=== PATIENT | male | born 1955 | race Two or more races ===

== ENCOUNTER 2018-05-18 06:53 | Day surgery (SDC) | payer OTHER ==
[~2018-05-18] VITALS: Ht 154.9 cm; Wt 89.3 kg
[2018-05-18] VITALS (13 sets, daily range): BP systolic 142–180; BP diastolic 77–102; PULSE 52–58; RESP 14–19; Ht 154.9 cm; Wt 89.3 kg
--- NOTE | 2018-05-18 06:24 | PREOPHP ---
DATE OF ADMISSION: 02/02/2018 HISTORY OF PRESENT ILLNESS: This 62-year-old patient is admitted for elective cataract surgery of th e right eye. The patient has previously had progressive deterioration of vision in both eyes and mabel roximately 3 months ago underwent cataract surgery of the left eye with excellent visual recovery. HISTORY OF PRESENT ILLNESS: The patient's systemic history is positive for insulin-dependent diabete s mellitus as well as hypertension and hypercholesterolemia. CURRENT MEDICATIONS: Include: 1. Atorvastatin. 2. Metformin. 3. Lantus insulin. 4. Jardiance. 5. Metoprolol. 6. Benazepril. ALLERGIES: THERE ARE NO KNOWN ALLERGIES. PHYSICAL EXAMINATION: The visual acuity with best correction is 20/80 in the right eye and 20/30 in the left eye. Slit lamp examination reveals nuclear sclerosis and posterior subcapsular cataract arjun nge in the right eye and a posterior chamber intraocular lens in the left eye. Applanation tonometry is 17 mmHg in both eyes. Examination of the retina reveals normal macula pattern with no evidence o f diabetic retinopathy. DIAGNOSIS: Cataract, right eye. PLAN: Cataract extraction with lens implant, right eye. The risks and alternatives to the surgery h ave been discussed with the patient as well as the hope for improvement of visual acuity leading to g reater ability to perform activities of daily living. The patient understands this and agrees to pro ceed with surgery. Dictated By: ALLISON VU/DIAMOND Conf#: [id number] DID#: [id number]
[2018-05-18] MEDS ORDERED: TROPICAMIDE 1% 15 ML OPH OPER SCH (07:00)
[2018-05-18] MEDS ORDERED: LIDOCAINE 2% (SDV) 5 ML INJ ONE (07:00)
[2018-05-18] MEDS ORDERED: CYCLOPENTOLATE/PHENYLEPH 2 ML OPH OPER SCH (07:00)
[2018-05-18] MEDS ORDERED: PROPOFOL 200 MG INJ ONE (07:00)
[2018-05-18] MEDS ORDERED: SOD CHLORIDE 0.9% 1,000 ML IV SCH (07:00)
[2018-05-18] MEDS ORDERED: DICLOFENAC 0.1% 2.5 ML OPH OPER SCH (07:00)
[2018-05-18] MEDS ORDERED: MOXIFLOXACIN 0.5% 3 ML OPH OPER SCH (07:00)
[2018-05-18] MEDS ORDERED: METF100010 PO (07:41)
[2018-05-18] MEDS ORDERED: METO-336 PO (07:42)
[2018-05-18] MEDS ORDERED: LOSA100T15 PO (07:43)
[2018-05-18] MEDS ORDERED: FAMO40TA5 PO (07:43)
[2018-05-18] MEDS ORDERED: EMPA25TA PO (07:43)
[2018-05-18] MEDS ORDERED: LIRA0.6P2 SQ (07:46)
[2018-05-18] MEDS ORDERED: LIDOCAINE 4% (MPF) 5 ML INJ ONE (08:31)
[2018-05-18] MEDS ORDERED: CEFAZOLIN 1 GM INJ ONE (08:31)
[2018-05-18] MEDS ORDERED: CARBACHOL 0.01% 1.5 ML OPH INJ ONE (08:32)
[2018-05-18] MEDS ORDERED: TETRACAINE 0.5% 4 ML OPH ONE (08:32)
[2018-05-18] MEDS ORDERED: DEXAMETHASONE 4 MG/ML 1 ML INJ ONE (08:32)
--- NOTE | 2018-05-18 08:55 | PREAC ---
Date/Time of Note Date/Time of Note DATE: 05/18/18 TIME: 08:52 Anesthesia Eval and Record Evaluation Time Pre-Procedure Interview DATE: 05/18/18 TIME: 08:52 Age 62 Sex male NPO: 8 hrs Preoperative diagnosis Right Eye Cataract Planned procedure Right eye Cataract Extraction and IOL Past Medical History Past Medical History: Includes Cardio: HTN, Dyslipidemia Endo: Diabetes Pulm: Other Neuro: Other Musculoskeletal: Osteoarthritis Renal: Other Hepatic: Other GI: Obesity, Other Heme: Other Psych: Other Infection(s): Other Recreational drugs: Other : Other Surgery & Anesthesia Issues Aspiration risk Meds Anticoagulation: No Beta Marianne within 24 hr: Yes Reason Beta Marianne not given: Other Reported Medications Liraglutide (Victoza 3-Daniel) 0.6 Mg/0.1 Ml Pen.injctr, 1.8 MG SQ DAILY, SYR 05/18/18 Famotidine* (Famotidine*) 40 Mg Tablet, 40 MG PO HS, #30 TAB 05/18/18 Losartan Potassium* (Losartan Potassium*) 100 Mg Tablet, 100 MG PO DAILY, TAB 05/18/18 Empagliflozin (Jardiance) 25 Mg Tablet, 25 MG PO DAILY, TAB 05/18/18 Metoprolol Succinate* (Toprol XL*) 100 Mg Tab.sr.24h, 100 MG PO DAILY, #30 TAB 05/18/18 Metformin Hcl* (Metformin Hcl*) 1,000 Mg Tablet, 1000 MG PO WITH BREAKFAST DINNE, #60 TAB 05/18/18 Current Medications Diclofenac Sodium (Voltaren 0.1%) 1 drop Q5 MIN X 3 OPER Last administered on 05/18/18at 07:33; Admin Dose 1 DROP; Start 05/18/18 at 07:00 Tropicamide (Mydriacyl 1%) 1 drop Q5 MIN X3 OPER Last administered on 05/18/18at 07:34; Admin Dose 1 DROP; Start 05/18/18 at 07:00 Moxifloxacin HCl (Vigamox) 1 drop Q5 MIN X 3 OPER Last administered on 05/18/18at 07:34; Admin Dose 1 DROP; Start 05/18/18 at 07:00 Cyclopentolate/ Phenylephrine (Cyclomydril Oph 2 ml) 1 drop Q5 MIN X 3 OPER Last administered on 05/18/18at 07:34; Admin Dose 1 DROP; Start 05/18/18 at 07:00 Sodium Chloride 1,000 ml @ 25 mls/hr Q24H IV ; Start 05/18/18 at 07:00 Meds reviewed: Yes Allergies Coded Allergies: No Known Allergy (Unverified , 05/18/18) Allergies Reviewed: Yes Labs/Studies Labs Reviewed: Reviewed by anesthesiologist Result Diagram: 05/18/18 0745 Laboratory Tests 05/18/18 07:45 test: N/A Studies: ECG, CXR Pre-procedure Exam Last vitals Vital Signs Date Temp Pulse Resp B/P (MAP) Pulse Ox O2 O2 Flow FiO2 Time Delivery Rate 05/18/18 98.0 56 16 155/78 97 Room Air 07:54 (103) Airway: Adequate mouth opening Mallampati: Mallampati II Teeth: Normal Lung: Normal Heart: Normal Anticipated Difficutly with IV: Anticipate Difficult IV Access ASA Physical Status ASA physical status: 2 Emergency: None Planned Anesthetic General/MAC: MAC Neuraxial: Other Nerve block: Other Planned Pain Management Parenteral pain med, Local by surgeon Pre-operative Attestations Prior to commencing anesthesia and surgery, the patient was re-evaluated, there was verification of: *The patient's identity *The results of appropriate recent lab work and preoperative vital signs *The above evaluation not changing prior to induction *Anesthetic plan, risk benefits, alternative and complications discussed with patient/family; questions answered; patient/family understands, accepts and wishes to proceed. STANISLAV CA MD May 18, 2018 08:55
[2018-05-18] MEDS ORDERED: NA HYALURONATE/CHONDROITIN 0.5 ML SYG OP ONE (09:21)
--- NOTE | 2018-05-18 09:34 | SIPON ---
Date/Time of Note Date/Time of Note DATE: 05/18/18 TIME: 09:33 Operative Report Preoperative Diagnosis nuclear sclerotic cataract od Postoperative Diagnosis same Operation/Procedure Performed cataract extraction with lens implant od Surgeon allison jordan podiatry assistant none Anesthesia: MAC Estimated blood loss: none Transfusion Required none Specimen none Grafts/Implants posterior chamber lens implant Complications none ALLISON JORDAN MD May 18, 2018 09:34
--- NOTE | 2018-05-18 09:41 | PAC ---
Date/Time of Note Date/Time of Note DATE: 05/18/18 TIME: 09:40 Post-Anesthesia Notes Post-Anesthesia Note Last documented vital signs Vital Signs Date Temp Pulse Resp B/P (MAP) Pulse Ox O2 O2 Flow FiO2 Time Delivery Rate 05/18/18 98.0 56 16 155/78 97 Room Air 07:54 (103) Activity: WNL Respiratory function: WNL Cardiovascular function: WNL Mental status: Baseline Pain reasonably controlled: Yes Hydration appropriate: Yes Nausea/Vomiting absent: No STANISLAV CA MD May 18, 2018 09:41
[2018-05-18] MEDS ORDERED: hydrALAzine 20 MG INJ IV ONE (10:00)
--- NOTE | 2018-05-18 13:28 | OPR ---
DATE OF OPERATION: 05/18/2018 PREOPERATIVE DIAGNOSIS: Nuclear sclerotic cataract, right eye. POSTOPERATIVE DIAGNOSIS: Nuclear sclerotic cataract, right eye. OPERATION PERFORMED: Cataract extraction, phacoemulsification with posterior chamber intraocular bandar s implant, right eye. SURGEON: Allison Fonseca MD ANESTHESIA: Local standby. ANESTHESIOLOGIST: Triston Jerez MD PROCEDURE: The patient was brought to the operating room and placed on the table with an IV in place and the patient attached to an compliance monitor. Oxygen was given via face mask. After some intravenous sedation was administered, local anesthesia was given using Xylocaine 2% with epinephrine, mixed with Marcaine 0.5%. This was given in a lid block and retrobulbar injection. The p atient was then prepped and draped in the usual sterile manner. A wire lid speculum was inserted between the lids of the right eye. A Superblade was used to enter th e anterior chamber at the corneoscleral limbus at the 10:30 o'clock position. A separate incision was made using a 3.0-mm keratome which entered the corneoscleral junction at the 12 o'clock position. Th rough this 3-mm opening, an irrigating cystotome was introduced into the anterior chamber. The chambe r was filled with Viscoat and an anterior capsulotomy was performed. Balanced salt solution was then used for hydrodissection of the lens. A phacoemulsification handpiece was then brought into the fiel d and introduced into the anterior chamber. The lens nucleus was emulsified using a deep groove and c racking the nucleus into quadrants. Following this, each quadrant was aspirated and emulsified at the pupillary margin. After this was completed, the irrigation/aspiration handpiece was brought to the field, introduced in to the posterior chamber, and the lens cortical material was removed. When this was completed, additi onal Viscoat was injected into the anterior and posterior chambers. The 3-mm opening had its internal lips enlarged, and then the posterior chamber intraocular lens jagdeep uring 20.5 diopters (Bausch and Lomb Conecte Link [id number]) was then injected into the posterior chamber using the lens injector system. After the leading haptic was introduced into the capsular bag and th e lens optic was present in the center of the eye, the injector was removed and the trailing haptic w as grasped with non-toothed forceps and introduced into the capsular fold superiorly. A Sinskey hook was then used to rotate the intraocular lens so that the lips were oriented in the horizontal meridia n. One 10-0 nylon suture was placed across the wound. Prior to tying, the irrigation/aspiration handpiece was reintroduced into the anterior chamber to rem ove the Viscoat. Miochol was instilled to constrict the pupil, and then the 10-0 nylon suture was tie d. The ends were cut short and then the knot was buried. Then, 0.5 mL of dexamethasone and 0.5 mL of Ancef were injected into the sub-Tenon space in the infer ior fornix. Ciloxan drops were then placed on the surface of the eye. The speculum was removed and a patch was applied. The patient then left the operating room in satisfactory condition. Dictated By: ALLISON VU/DIAMOND Conf#: [id number] DID#: [id number]
== END 2018-05-18 11:00 | disposition home or self-care (01) ==
LOC: SDS 06:53
PROVIDERS: ATTEND Ophthalmology
DX: H25.11 Age-related nuclear cataract, right eye (principal); I10 Essential (primary) hypertension; E11.9 Type 2 diabetes mellitus without complications; E78.5 Hyperlipidemia, unspecified; Z79.84 Long term (current) use of oral hypoglycemic drugs
CPT/HCPCS: 66984; 80053; 82962; J0690; J1100; V2632